=== PATIENT | male | born 1970 | race Caucasian/White ===

== ENCOUNTER 2018-07-29 00:34 | Observation (INO) ==
--- NOTE | 2018-07-29 02:35 | Emergency Department Note ---
ED Disposition Clinical Impression: Severe sepsis, Septic shock, Acute exacerbation of chronic obstructive airways disease Obesity Qualifiers: Obesity type: due to excess calories Obesity classification: adult class 2 (BMI 35 - 39.9) Serious obesity comorbidity presence: with serious comorbidity Body mass index: BMI 37.0-37.9 Qualified Code(s): E66.01 - Morbid (severe) obesity due to excess calories; Z68.37 - Body mass index (BMI) 37.0-37.9, adult Chest pain Qualifiers: Chest pain type: precordial pain Qualified Code(s): R07.2 - Precordial pain Disposition: Admitted As Inpatient Condition on Discharge: Good Referrals: Provider,Referral, MD [Primary Care Provider] - - Critical Care Critical Care Time: No Attestation: On 07/29/18, the high probability of a clinically significant, sudden or life threatening deterioration of the following system(s) required my full and direct attention, intervention and personal management. The time I documented below is in addition to time spent performing reported procedures but includes the following listed in this critical care notation. Medical Decision Making - Medical Records Medical records reviewed: Yes: I reviewed the patient's medical records. - [place] Inquiry Pt receiving controlled substance: No Vital Signs: 07/29/18 00:34 07/29/18 01:04 07/29/18 01:34 Temperature 97.8 F 97.8 F Temperature Source Oral Oral Pulse Rate [Right Brachial] 90 104 H 111 H Respiratory Rate 26 H 26 H 25 H Blood Pressure [Right Arm] 130/84 129/79 137/84 Blood Pressure Mean [Right Arm] 99 95 101 02 Sat by Pulse Oximetry 90 L 93 L 90 L Oxygen Delivery Method Nasal Cannula Nasal Cannula Nasal Cannula Oxygen Flow Rate (LPM) 4 07/29/18 02:04 07/29/18 02:30 07/29/18 03:00 Temperature Temperature Source Pulse Rate [Right Brachial] 103 H 107 H 99 H Respiratory Rate 24 24 22 Blood Pressure [Right Arm] 151/108 H 145/97 H 144/97 H Blood Pressure Mean [Right Arm] 122 113 112 02 Sat by Pulse Oximetry 97 95 96 Oxygen Delivery Method Nasal Cannula Nasal Cannula Nasal Cannula Oxygen Flow Rate (LPM) 3 2 2 - Lab Data Lab results reviewed: Yes: I reviewed the patient's lab results. Lab Results 07/29/18 00:49: WBC 9.3, RBC 5.92, Hgb 17.4, Hct 51.4, MCV 86.8, MCH 29.4, MCHC 33.9, RDW 13.9, Plt Count 222, MPV 7.1 L, Neut % (Auto) 83.2 H, Lymph % (Auto) 12.0, [place] % (Auto) 3.1, Eos % (Auto) 0.1, Baso % (Auto) 0.4, Neut # (Auto) 7.8, Lymph # (Auto) 1.1, [place] # (Auto) 0.3, Eos # (Auto) 0.0, Baso # (Auto) 0.0 07/29/18 00:49: Sodium 139, Potassium 4.8, Chloride 99, Carbon Dioxide 20 L, Anion Gap 24.8 H, BUN 14, Creatinine 1.06, Estimated Creat Clear 173, Estimated GFR 74, Est GFR ( Amer) 90, Glucose 95, Calcium 8.5, Troponin I < 0.02 07/29/18 00:49: Lactate 8.2 H Result diagrams: 07/29/18 00:49 07/29/18 00:49 Orders (Tests/Meds): ED MEDICATIONS Generic Name Dose Route Start Last Admin Trade Name Freq PRN Reason Stop Dose Admin Sodium Chloride 4,350 mls @ 2,175 mls/hr 07/29/18 02:10 07/29/18 01:24 Sod Chlor 0.9% 1000ml Bag 30 ml/kg infuse over 2 hr (4350 ml) 07/29/18 04:09 2,175 mls/hr IV Administration .Q2H ONE Ceftriaxone Sodium 1 gm/ 50 mls @ 100 mls/hr 07/29/18 03:30 Sodium Chloride IV 08/12/18 03:29 Q24H GENESIS Protocol Azithromycin 500 mg/ Sodium 250 mls @ 250 mls/hr 07/29/18 03:30 Chloride IV 08/12/18 03:29 Q24H GENESIS Protocol Discontinued Medications Generic Name Dose Route Start Last Admin Trade Name Freq PRN Reason Stop Dose Admin Albuterol/Ipratropium 3 ml 07/29/18 02:08 07/29/18 00:54 Duoneb 3ml Neb IH 07/29/18 02:09 3 ml ONCE ONE Administration Furosemide 40 mg 07/29/18 03:05 07/29/18 03:16 Lasix 40mg/4ml Vial IV 07/29/18 03:06 40 mg ONCE ONE Administration Methylprednisolone Sodium Succinate 125 mg 07/29/18 02:08 07/29/18 00:54 Solu-Medrol 125mg/2ml Vial IV 07/29/18 02:09 125 mg ONCE ONE Administration ORDERS Category Date Time Status XR chest portable Stat Exams 07/29/18 02:05 Taken Troponin I Timed Lab 07/29/18 03:30 Ordered Blood Culture Stat Micro 07/29/18 00:49 Received ABG PH Stat RT 07/29/18 01:04 Ordered ECG Request by /[place] Stat Y 07/29/18 02:06 Ordered - Radiology Data #1 Image(s): Chest Image Reviewed: Yes I reviewed the patient's radiology image Preliminary Findings: Abnormal (possible chf ) - ECG Data Tracing #1 I reviewed this ECG and interpreted as documented below: Normal Sinus Rhythm: Yes Ischemic changes: non-specific ST-T wave changes - Tissue Perfus/Sepsis Re-Eval Reperfusion Exam Performed: Yes Date Performed: 07/29/18 Time Performed: 03:24 Sepsis Follow-Up: Yes: Respiratory exam, Cardiovascular exam, Capillary refill, Peripheral pulse strength, Peripheral pulse location, Vital Signs - JUNIOR Score for Non-Stemi Age of Patient: 40-49 years old Heart Rate: 90-109 bpm Systolic Blood Pressure: 120-139 mmhg Serum Creatinine: 0.80-1.19 mg/dl CHF [place] Class: I-No CHF Other Risk Factors: None Non-Stemi Risk Score: 81 Resp/SOB HPI - General Chief Complaint: Shortness of Breath/Dyspnea Stated Complaint: shortness of breath Time Seen by Provider: 07/29/18 00:50 Mode of Arrival: EMS Source of Information: Patient, Parent(s), Medical Record Limitations: No Limitations Description of Symptoms (Recalled from ER Triage Doc. by RN): Brought in by EMS after they responded to his house 2x for respiratory distress. Pt refused transport the first time, but decided to come in because he couldn't breathe. Pt reports a tightness in his chest, and reports he feels anxious. Pt received 324 of ASA, 1 spray of nitro, and a duoneb en route. Pt arrived on 4L [place]. 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 with pressure like ant chest pain- which is new - no known ht disease MD Complaint: shortness of breath, chest pain Onset (ago): day(s) Severity: moderate Consistency/Duration: intermittent Treatment prior to arrival: none - Related Data Home oxygen amount: none Home Medications Medication Instructions Recorded Confirmed Omeprazole [Omeprazole 40mg 40 mg PO DAILY 07/29/18 07/29/18 Capsule] Allergies Allergy/AdvReac Type Severity Reaction Status Date / Time No Known Allergies Allergy Verified 07/29/18 02:11 [facility] History - Hepatitis A Screen Drug use history?: No High risk sexual behaviors?: No History of sexually transmitted infection?: No Currently employed?: No Childcare worker?: No Do you have indoor plumbing?: Yes Do you have electricity?: Yes Attestation statement:: This patient has been screened for Hepatitis A risk factors. I have reviewed the patient's past medical history: Yes Medical History: Denies:: Cancer, Diabetes Mellitus Type 1, Diabetes Mellitus Type 2, MRSA Amputation: No Fractures: No - Social History Smoking Status: Current every day smoker Tobacco Type: cigarettes # Packs/Day (cigarettes): 1 Alcohol Intake: current Alcohol Intake Frequency:: a few times a month Occupational Status: employed Housing: house - Psychiatric History Expresses thoughts of harming self/others: None Suicide Plan Description: No Plan ROS Obtained: Yes All systems reviewed & no additional complaints - Constitutional Constitutional: Reports fatigue, Denies fever(s), Reports weakness - Eyes Eyes: Denies change in vision - ENT Ears, Nose, Mouth, and Throat: Denies post nasal drip - Cardiovascular Cardiovascular: Reports chest pain, Reports chest pain at rest, Reports dyspnea, Reports radiating jaw, neck or arm pain - Respiratory Respiratory: No cough - Gastrointestinal Gastrointestingal: Denies: abdominal pain, diarrhea, vomiting - Genitourinary Male Genitourinary: Denies hematuria - Musculoskeletal Musculoskeletal: Denies joint pain, Denies joint swelling - Integumentary/Breasts Skin/Breast: Denies rash - Neurologic Neurologic: Denies seizure-like activity Physical Exam - General General appearance: alert, obese - Head Head exam: normocephalic - Eye Eye exam: Present: PERRL, EOMI. Absent: scleral icterus - ENT ENT exam: Present: mucous membranes dry - Neck Neck exam: Absent: trachea midline - Respiratory Respiratory exam: Present: other (dec bs bilat ). Absent: respiratory distress - Cardiovascular Cardiovascular exam: Present: regular rate, systolic murmur, +S3 - Abdominal Exam Abdominal exam: Present: soft - Extremities Exam Extremities exam: Absent: calf tenderness - Neurological Exam Neurological exam: Present: alert, oriented X3, CN II-XII intact - Psychiatric Psychiatric exam: Present: normal affect - Skin Skin exam: Absent: rash
[2018-07-29 03:10] LABS: Hematocrit 51.4 % (42.0-52.0); Hemoglobin 17.4 g/dL (14.1-18.0); Mean Corpuscular HGB Conc 33.9 g/dL (31.8-35.4); Mean Corpuscular Hemoglobin 29.4 pg (27.0-31.2); Mean Corpuscular Volume 86.8 fl (80-94); Red Blood Count 5.92 M/mm3 (4.60-6.20); White Blood Count 9.3 K/mm3 (4.8-10.8)
[2018-07-29 03:11] LABS: Basophils % 0.4 % (0.1-2.0); Eosinophils % 0.1 % (0.1-12.0); Lymphocytes # 1.1 K/mm3 (0.7-4.5); Mean Platelet Volume 7.1 fl (7.4-10.4); Monocytes # 0.3 K/mm3 (0.1-1.0); Monocytes % 3.1 % (1.7-9.3); Neutrophils # 7.8 K/mm3 (1.8-7.8); Neutrophils % 83.2 % (37.0-80.0); Platelet Count 222 K/mm3 (142-424); Red Cell Distribution Width 13.9 % (11.5-17.5)
[2018-07-29 03:14] LABS: Anion Gap 24.8 mEq/L (5-15); Blood Urea Nitrogen 14 mg/dL (7-18); Calcium 8.5 mg/dL (8.5-10.1); Carbon Dioxide 20 mmol/L (21.0-32.0); Chloride 99 mmol/L (98-107); Glucose 95 mg/dL (74-106); Potassium 4.8 mmoL/L (3.5-5.1); Sodium 139 mmol/L (136-145)
--- NOTE | 2018-07-29 07:56 | Pharmacy Consult Notes ---
[facility] Pharmacy VTE Monitoring - Patient Demographics Admission date: 07/28/18 Report Date: 07/29/18 Time: 07:56 Allergies/Adverse Reactions: Patient Allergies No Known Allergies Allergy (Verified 07/29/18 02:11) Height: 1.96 m Weight: 145.15 kg Patient Problems: Current Active Problems (Updated 07/29/18 @ 03:26 by Hadley Issa MD) Severe sepsis (Acute) Septic shock (Acute) Acute exacerbation of chronic obstructive airways disease (Acute) Obesity (Acute) Chest pain (Acute) - VTE Risk Labs: VTE Related Lab Results Hgb 17.4 g/dL (14.1-18.0) 07/29/18 00:49 Hct 51.4 % (42.0-52.0) 07/29/18 00:49 Plt Count 222 K/mm3 (142-424) 07/29/18 00:49 BUN 14 mg/dL (7-18) 07/29/18 00:49 Creatinine 1.06 mg/dL (0.70-1.30) 07/29/18 00:49 Estimated Creat Clear 173 mL/min (50-200) 07/29/18 00:49 Clinical Trial Participant: No - Prophylaxis VTE Prophylaxis Ordered?: Yes Types of VTE Prophylaxis: TEDS Knee High
--- NOTE | 2018-07-29 08:15 | History & Physical Report ---
*Admission Date: 07/28/18 *Chief complaint: Chest weakness *History of present illness: 48-year-old male smoker with suspected COPD presented to the emergency department with chest tightness. Patient reports for the last 3 months he has noticed dyspnea on exertion sometimes walking as little as 25 feet before he will become short of breath. He continues to smoke cigarettes. On the evening of admission patient had developed some chest tightness while at rest that would come and go. Eventually the chest tightness would not resolve and he sought treatment at the emergency department. Work-up was negative for acute ST elevation [place]. Patient had an elevated lactate level and was given IV fluids. Due to patient's stuttering angina and risk factors decision was made to admit the patient for cardiology evaluation. Patient is currently chest pain-free with nitroglycerin paste. [facility] History I have reviewed the patient's past medical history: Yes Medical History: Denies:: Cancer, Diabetes Mellitus Type 1, Diabetes Mellitus Type 2, MRSA Amputation: No Fractures: No - *Social History Smoking Status: Current every day smoker Tobacco Type: cigarettes # Packs/Day (cigarettes): 1 Alcohol Intake: current Alcohol Intake Frequency:: a few times a month *Occupational Status:: employed Housing: house *Travel in the last 8 weeks: None - Psychiatric History Expresses thoughts of harming self/others: None Suicide Plan Description: No Plan Family Hx:: Diabetes, Hypertension Review of Systems - Review of Systems Review of systems:: pertinent systems reviewed and negative unless documented below - *Neurologic Reports weakness, Denies seizure-like activity Meds Home Medications Medication Instructions Recorded Confirmed Type Omeprazole [Omeprazole 40mg 40 mg PO DAILY 07/29/18 07/29/18 History Capsule] Allergies Allergy/AdvReac Type Severity Reaction Status Date / Time No Known Allergies Allergy Verified 07/29/18 02:11 Exam Vital signs and Labs for Last 24 Hours: Temp Pulse Resp BP Pulse Ox 97.8 F 101 H 20 147/91 H 92 L 07/29/18 08:04 07/29/18 08:04 07/29/18 08:04 07/29/18 08:04 07/29/18 07:52 Laboratory Results - last 24 hr 07/29/18 00:49: WBC 9.3, RBC 5.92, Hgb 17.4, Hct 51.4, MCV 86.8, MCH 29.4, MCHC 33.9, RDW 13.9, Plt Count 222, MPV 7.1 L, Neut % (Auto) 83.2 H, Lymph % (Auto) 12.0, [place] % (Auto) 3.1, Eos % (Auto) 0.1, Baso % (Auto) 0.4, Neut # (Auto) 7.8, Lymph # (Auto) 1.1, [place] # (Auto) 0.3, Eos # (Auto) 0.0, Baso # (Auto) 0.0 07/29/18 00:49: Sodium 139, Potassium 4.8, Chloride 99, Carbon Dioxide 20 L, Anion Gap 24.8 H, BUN 14, Creatinine 1.06, Estimated Creat Clear 173, Estimated GFR 74, Est GFR ( Amer) 90, Glucose 95, Calcium 8.5, Troponin I < 0.02 07/29/18 00:49: Lactate 8.2 H 07/29/18 01:04: ABG pH 7.51 H 07/29/18 03:35: Troponin I < 0.02 07/29/18 05:00: Lactate 7.2 H I & O for Last 24 hours: Intake & Output 07/26/18 07/27/18 07/28/18 07/29/18 11:59 11:59 11:59 11:59 Intake Total 6790 / 6790 Output Total 3600 / 3600 Balance 3190 / 3190 Weight 320 lb Narrative: Patient appears comfortable sitting up in bed. ENT exam is unremarkable. Neck has no carotid bruits. Lungs have expiratory wheezes. Heart has a regular rate and rhythm. Abdomen is obese, soft, nontender. Extremities are warm to the touch. Active range of motion in all extremities Assessment and Plan (1) Unstable angina Current visit: Yes Status: Acute Category: Medical Code(s): I20.0 - Unstable angina (2) Cigarette smoker Current visit: Yes Status: Acute Category: Medical Code(s): F17.210 - Nicotine dependence, cigarettes, uncomplicated (3) Obesity Current visit: Yes Status: Acute Qualifiers: Obesity type: due to excess calories Obesity classification: adult class 2 (BMI 35 - 39.9) Serious obesity comorbidity presence: with serious comorbidity Body mass index: BMI 37.0-37.9 Qualified Code(s): E66.01 - Morbid (severe) obesity due to excess calories; Z68.37 - Body mass index (BMI) 37.0-37.9, adult Category: Medical Code(s): E66.9 - Obesity, unspecified - Assessment and plan all Dx Assessment and Plan for all problems:: 1. Cardiology consultation today. Echocardiogram is been performed 2. Patient had abnormal portable chest x-ray and repeat two-view chest x-ray will be ordered. Portable x-ray at least ruled out pneumonia
--- NOTE | 2018-07-29 10:14 | Consult Report ---
History of Present Illness Consult date: 07/29/18 Requesting physician: Moustapha West Consult reason: chest pain Chief complaint: Chest pain Additional Medical History:: 1. Tobacco use, 1.5 packs/day x 40 plus years 2. Hypertension, untreated 3. 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 Chronic PPI therapy 4. History of iron deficiency anemia with multiple units of blood transfused, 10/2016 5. Family history of coronary artery disease in his father with CT in his 50s History of present illness: 48-year-old male smoker with suspected COPD presented to the emergency department with chest tightness. Patient reports for the last 3 months he has noticed dyspnea on exertion sometimes walking as little as 25 feet before he will become short of breath. He continues to smoke cigarettes. On the evening of admission patient had developed some chest tightness while at rest that would come and go. Eventually the chest tightness would not resolve and he sought treatment at the emergency department. Work-up was negative for acute ST elevation CT. Patient had an elevated lactate level and was given IV fluids. Due to patient's stuttering angina and risk factors decision was made to admit the patient for cardiology evaluation. Patient is currently chest pain-free with nitroglycerin paste. The above per Dr. West. Preliminary echocardiogram shows preserved ejection fraction. EKG shows sinus with rhythm with ST elevation across the precordium that appears to be early repolarization changes. Troponins normal x3. Patient relates no further chest pain since nitroglycerin paste was placed on his chest. [facility] History Medical History: Denies:: Cancer, Diabetes Mellitus Type 1, Diabetes Mellitus Type 2, MRSA *Have you ever received a pneumonia vaccine?: No *Have you received a flu vaccine this season?: No Amputation: No Fractures: No - *Social History Smoking Status: Current every day smoker Tobacco Type: cigarettes # Packs/Day (cigarettes): 1 Alcohol Intake: current Alcohol Intake Frequency:: a few times a month *Occupational Status:: employed Housing: house *Travel in the last 8 weeks: None - Psychiatric History Expresses thoughts of harming self/others: None Suicide Plan Description: No Plan Family Hx:: Diabetes, Hypertension Meds Home Medications Medication Instructions Recorded Confirmed Type Omeprazole [Omeprazole 40mg 40 mg PO DAILY 07/29/18 07/29/18 History Capsule] Allergies Allergy/AdvReac Type Severity Reaction Status Date / Time No Known Allergies Allergy Verified 07/29/18 02:11 Review of Systems - *Cardiovascular Reports chest pain, Reports shortness of breath with activity - *Respiratory Reports cough, Reports shortness of breath with activity - *Gastrointestinal Denies abdominal pain, Denies bright, red blood in stools, Denies black, tarry stools, Denies nausea - *Genitourinary Denies blood in urine, Denies urinary hesitancy - *Musculoskeletal Reports joint pain, Reports back pain - *Neurologic Reports weakness, Denies seizure-like activity Exam Vital signs and Labs for Last 24 Hours: Temp Pulse Resp BP Pulse Ox 98.2 F 77 18 175/100 H 92 L 07/29/18 08:43 07/29/18 10:11 07/29/18 08:43 07/29/18 08:43 07/29/18 08:43 Laboratory Results - last 24 hr 07/29/18 00:49: WBC 9.3, RBC 5.92, Hgb 17.4, Hct 51.4, MCV 86.8, MCH 29.4, MCHC 33.9, RDW 13.9, Plt Count 222, MPV 7.1 L, Neut % (Auto) 83.2 H, Lymph % (Auto) 12.0, [place] % (Auto) 3.1, Eos % (Auto) 0.1, Baso % (Auto) 0.4, Neut # (Auto) 7.8, Lymph # (Auto) 1.1, [place] # (Auto) 0.3, Eos # (Auto) 0.0, Baso # (Auto) 0.0 07/29/18 00:49: Sodium 139, Potassium 4.8, Chloride 99, Carbon Dioxide 20 L, Anion Gap 24.8 H, BUN 14, Creatinine 1.06, Estimated Creat Clear 173, Estimated GFR 74, Est GFR ( Amer) 90, Glucose 95, Calcium 8.5, Troponin I < 0.02 07/29/18 00:49: Lactate 8.2 H 07/29/18 01:04: ABG pH 7.51 H 07/29/18 03:35: Troponin I < 0.02 07/29/18 05:00: Lactate 7.2 H 07/29/18 07:50: Lactate 6.3 H 07/29/18 07:50: Troponin I < 0.02 I & O for Last 24 hours: Intake & Output 07/26/18 07/27/18 07/28/18 07/29/18 11:59 11:59 11:59 11:59 Intake Total 6790 / 6790 Output Total 3600 / 3600 Balance 3190 / 3190 Weight 310 lb - *Routine HEENT Exam Head: Present: normocephalic Eye: Present: EOMI, PERRL ENT: Present: mucous membranes moist - *Routine Neck Exam Present: supple. Absent: JVD, carotid bruit - *Routine Respiratory Exam Present: CTA bilaterally. Absent: accessory muscle use, rales, rhonchi, wheezes - *Routine Cardiovascular Exam Present: RRR. Absent: murmur, gallop, rubs - *Routine Extremities Exam Absent: edema, calf tenderness - *Routine Neurological Exam Present: alert, oriented X3, moving all extremities Assessment and Plan (1) Unstable angina Current visit: Yes Status: Acute Category: Medical Code(s): I20.0 - Unstable angina (2) Cigarette smoker Current visit: Yes Status: Acute Category: Medical Code(s): F17.210 - Nicotine dependence, cigarettes, uncomplicated (3) Obesity Current visit: Yes Status: Acute Qualifiers: Obesity type: due to excess calories Obesity classification: adult class 2 (BMI 35 - 39.9) Serious obesity comorbidity presence: with serious comorbidity Body mass index: BMI 37.0-37.9 Qualified Code(s): E66.01 - Morbid (severe) obesity due to excess calories; Z68.37 - Body mass index (BMI) 37.0-37.9, adult Category: Medical Code(s): E66.9 - Obesity, unspecified - Assessment and plan all Dx Assessment and Plan for all problems:: 1. Chest pain consistent with angina pectoris class IV in a patient with long- term tobacco use, uncontrolled hypertension and strong family history of early coronary artery disease with abnormal EKG. Recommend proceeding with left heart catheterization. Risks, benefits and procedure explained and patient agrees to proceed. 2. We will add metoprolol 25 mg twice daily along with a one-time dose of Lasix 40 mg IV this morning. Patient did receive aspirin during the night. 3. Further recommendations to follow pending above results.
--- NOTE | 2018-07-29 16:25 | Discharge Summary ---
General - General Admission date:: 07/29/18 Discharge date: 07/29/18 HPI HPI: 48-year-old male smoker with suspected COPD presented to the emergency department with chest tightness. Patient reports for the last 3 months he has noticed dyspnea on exertion sometimes walking as little as 25 feet before he will become short of breath. He continues to smoke cigarettes. On the evening of admission patient had developed some chest tightness while at rest that would come and go. Eventually the chest tightness would not resolve and he sought treatment at the emergency department. Work-up was negative for acute ST elevation [place]. Patient had an elevated lactate level and was given IV fluids. Due to patient's stuttering angina and risk factors decision was made to admit the patient for cardiology evaluation. Patient is currently chest pain-free with nitroglycerin paste. Hospital Course Hospital Course: Cardiac catheterization was proceeded with during hospitalization and revealed normal coronary arteries with normal LVEF. Recommendations included heart rate and BP control with beta danny. Metoprolol 25 mg PO BID was started during stay. Patient will follow up with me next week and cardiology within the next 1-2 weeks. I have recommended checking blood pressure a couple hours after medication administration and as needed. Please bring documentation to follow up appointment and will make adjustments as needed. Objective Vital signs: Temp Pulse Resp BP Pulse Ox 98.2 F 89 17 157/106 H 91 L 07/29/18 08:43 07/29/18 16:10 07/29/18 16:10 07/29/18 16:10 07/29/18 16:10 no acute distress Comments: seated in recliner chair - *Routine Respiratory Exam Present: CTA bilaterally. Absent: accessory muscle use - *Routine Cardiovascular Exam Present: RRR, Normal S1, Normal S2. Absent: tachycardia, irregular rhythm - *Routine Abdominal Exam Present: soft, normoactive bowel sounds - *Routine Extremities Exam Comments: right arm with tband in place, no ecchymosis, bleeding noted, < 3 sec cap refill, no cyanosis - *Routine Neurological Exam Present: alert, oriented X3 Results Labs on day of discharge: Labs from last 24 hours 07/29/18 07/29/18 07/29/18 11:37 07:50 07:50 WBC RBC Hgb Hct MCV MCH MCHC RDW Plt Count MPV Neut % (Auto) Lymph % (Auto) [place] % (Auto) Eos % (Auto) Baso % (Auto) Neut # (Auto) Lymph # (Auto) [place] # (Auto) Eos # (Auto) Baso # (Auto) ABG pH Sodium Potassium Chloride Carbon Dioxide Anion Gap BUN Creatinine Estimated Creat Clear Estimated GFR Est GFR ( Amer) Glucose Lactate 6.3 H Calcium Troponin I < 0.02 < 0.02 07/29/18 07/29/18 07/29/18 05:00 03:35 01:04 WBC RBC Hgb Hct MCV MCH MCHC RDW Plt Count MPV Neut % (Auto) Lymph % (Auto) [place] % (Auto) Eos % (Auto) Baso % (Auto) Neut # (Auto) Lymph # (Auto) [place] # (Auto) Eos # (Auto) Baso # (Auto) ABG pH 7.51 H Sodium Potassium Chloride Carbon Dioxide Anion Gap BUN Creatinine Estimated Creat Clear Estimated GFR Est GFR ( Amer) Glucose Lactate 7.2 H Calcium Troponin I < 0.02 07/29/18 07/29/18 07/29/18 00:49 00:49 00:49 WBC 9.3 RBC 5.92 Hgb 17.4 Hct 51.4 MCV 86.8 MCH 29.4 MCHC 33.9 RDW 13.9 Plt Count 222 MPV 7.1 L Neut % (Auto) 83.2 H Lymph % (Auto) 12.0 [place] % (Auto) 3.1 Eos % (Auto) 0.1 Baso % (Auto) 0.4 Neut # (Auto) 7.8 Lymph # (Auto) 1.1 [place] # (Auto) 0.3 Eos # (Auto) 0.0 Baso # (Auto) 0.0 ABG pH Sodium 139 Potassium 4.8 Chloride 99 Carbon Dioxide 20 L Anion Gap 24.8 H BUN 14 Creatinine 1.06 Estimated Creat Clear 173 Estimated GFR 74 Est GFR ( Amer) 90 Glucose 95 Lactate 8.2 H Calcium 8.5 Troponin I < 0.02 DS: Diagnosis - Discharge Diagnosis (1) Unstable angina Status: Acute (2) Cigarette smoker Status: Acute (3) Obesity Status: Acute (4) Hypertension Status: Acute Discharge Plan - Patient Discharge Instructions ACTIVITY: Continue current activity DIET: low salt diet, cardiac Additional Instructions: Patient needs work note for the following week, will see him on 08/05/18 and determine ability to return to work. - Follow up Plan Follow up with: Niesha Nunez APRN [Nurse Practitioner] - 08/05/18 10:30 am Disposition: Home, Self-Senior Living Medications: Home Medications Medication Instructions Recorded Confirmed Type Metoprolol Tartrate [Lopressor 25 mg PO BID #60 tab 07/29/18 Rx 25mg tablet] Omeprazole [Omeprazole 40mg 40 mg PO DAILY 07/29/18 07/29/18 History Capsule] Prescriptions/Medication Reconciliation: New Metoprolol Tartrate [Lopressor 25mg tablet] 25 mg PO BID #60 tab Continued Omeprazole [Omeprazole 40mg Capsule] 40 mg PO DAILY
--- NOTE | 2018-07-30 14:32 | Cardiology Report ---
PROCEDURE: 2-D M-mode and color Doppler study INDICATIONS FOR THE TEST: Chest pain+ COPD+ Heart Murmur+ Tobacco Smoking+ Palpitations Fatigue Syncope Edema Hypertension Diabetes Mellitus Rheumatic Fever SOB+COLLINS Obesity+Hyperlipidemia Family History HD Additional History PATIENT INFORMATION HEIGHT: 78 WEIGHT: 320 GENDER: Male B/P: 137/84 2-D/M-MODE INTERPRETATION: 2-D MEASUREMENTS OBSERVED VALUES IN CMS Right Ventricular Dimension (RVDd) 2.7 Interventricular Septum (Thickness)(IVsd) 1.0 Left Ventricular Internal Dimensions(LVIDd) 5.1 Left Ventricular Posterior Wall (Thickness)(LVPWd) 1.0 Aortic Root 3.8 Aortic Cusp Separation 2.7 Left Atrial Dimensions (LAD) 4.0 2D 1. Left atrium is mildly enlarged, left ventricle is normal size, there is mild qualitative concentric left ventricular hypertrophy, there is hyperdynamic left ventricular systolic function, visually estimated ejection fraction over 65% with no regional wall motion abnormality, endocardial surfaces are poorly visualized. There is complete cavity obliteration during systole. 2. The right atrium and the ventricular normal size and contractility. 3. The aortic valve is minimally thickened and fibrosed leaflet continue to display mobility. 4. The mitral valve has systolic anterior motion of the mitral valve leaflets towards left ventricular outflow tract. 5. The tricuspid valve is grossly normal. 6. The pulmonic valve is poorly visualized. 7. No significant pericardial effusion noted. DOPPLER INTERROGATION: Doppler interrogation of the aortic, mitral and tricuspid valvular presence of mild mitral and tricuspid regurgitation. Tricuspid regurgitation jet velocity is inadequate for calculation of the right ventricular systolic pressure, grade 1 diastolic dysfunction seen without tissue Doppler evidence of raised left atrial pressure. There is increased late peaking velocities seen in the left ventricle outflow tract raising the concern is for presence of dynamic left ventricular outflow track obstruction, a repeat study with better Doppler technique is recommended for assessment of the dynamic outflow obstruction. CONCLUSION: 1. Mildly left atrium, normal left ventricular size, mild concentric left ventricular hypertrophy, hyperdynamic left ventricular systolic function, visually estimated ejection fraction over 65% with no regional wall motion abnormality, endocardial surface of poorly visualized. There is complete cavity obliteration during systole. Grade 1 diastolic dysfunction seen without tissue Doppler evidence of raised left atrial pressure. 2. Systolic anterior motion of the mitral valve leaflets, creating dynamic left ventricular outflow track obstruction, the degree of obstruction cannot be estimated from this study, a repeat study with better Doppler technique is recommended. 3. Mild mitral and tricuspid regurgitation 4. No significant pericardial effusion noted.
== END 2018-07-29 18:03 | disposition home or self-care (01) ==
LOC: ER 00:34 → 2ND 00:34
PROVIDERS: ADMIT Internal Medicine Adolescent Medicine; ATTEND Family Medicine
CPT/HCPCS: 36415; 71010; 71020; 71045; 71046; 80048; 83605; 84484; 85025; 87040; 87077; 87186; 93005; 93306; 93458; 94640; 96365; 96367; 96375; 99152; 99283; C1725; C1760; C1769; G0378; J0456; J1644; J2405

== ENCOUNTER → 2019-08-09 10:03 | Outpatient (CLI) | payer MEDICAID, SELFPAY ==
--- NOTE | 2019-08-10 19:22 | PC.NURSE ---
1918 DR. ZEE NOTIFIED OF NEGATIVE COVID-19 RESULTS 1920 PT NOTIFIED OF NEGATIVE COVID-19 RESULTS
[2019-08-11 11:06] LABS: Covid-19 Nasal PCR Sendout Lex NOT DETECTED
== END ==
PROVIDERS: PCP Family Medicine; Visit Provider Family Medicine
DX: Z03.818 Encounter for observation for suspected exposure to other biological agents ruled out (principal)
CPT/HCPCS: U0004

== ENCOUNTER → 2020-08-18 08:31 | Outpatient (CLI) | payer OTHER, SELFPAY ==
--- NOTE | 2020-08-18 08:39 | US_ITS ---
PROCEDURE: US ABDOMEN COMPLETE CLINICAL INDICATION: JAUNDICE,WEIGHT LOSS,ABN LIVER FUNCTION,ABDOMINAL MASS COMPARISON: No exams were available for comparison FINDINGS: PANCREAS: Unremarkable. No obvious mass or abnormal fluid collection. No ductal dilatation LIVER: Mild hepatomegaly. There is overall increased somewhat coarsened appearing echogenicity consistent with diffuse fatty steatosis. There are few areas of relative fatty sparing of the liver parenchyma however. RIGHT KIDNEY: Right kidney measures 13.0 x 6.2 by 9.1 cm and shows a good corticomedullary junction with no hydronephrosis or other abnormality. LEFT KIDNEY: Not imaged GALLBLADDER: Gallbladder is normal in size and shows a mildly thickened wall. There is a trace amount of biliary sludge along the dependent wall with no definite gallstones are seen. The common bile duct measures 0.6-0.7 cm in diameter. There is no intrahepatic biliary ductal dilatation. The portal vein is borderline dilated. AORTA: No evidence of aneurysmal dilatation. ASCITES: None demonstrated. IMPRESSION: Diffuse hepatic steatosis with mild generalized hepatomegaly, findings suggesting possible mild chronic cholecystitis along with small amount of biliary sludge Dictated by: Dr. Martin Albrecht MD 08/18/2020 13:44 Dr. Martin Albrecht MD in [place] 08/18/2020 13:44
== END ==
PROVIDERS: PCP Family Medicine; Visit Provider Family Medicine
DX: R17 Unspecified jaundice (principal); R63.4 Abnormal weight loss; R94.5 Abnormal results of liver function studies; R19.01 Right upper quadrant abdominal swelling, mass and lump
CPT/HCPCS: 76700

== ENCOUNTER → 2021-03-12 15:32 | Outpatient (CLI) | payer OTHER, SELFPAY | PROVIDERS: PCP Family Medicine; Visit Provider Nurse Practitioner | DX: Z20.822 Contact with and (suspected) exposure to COVID-19 (principal) | CPT/HCPCS: C9803; U0003; U0005 ==

== ENCOUNTER → 2021-03-13 11:25 | Outpatient (CLI) | payer OTHER, SELFPAY | PROVIDERS: PCP Family Medicine; Visit Provider Nurse Practitioner | DX: Z20.822 Contact with and (suspected) exposure to COVID-19 (principal) | CPT/HCPCS: C9803; U0003; U0005 ==